=== PATIENT | male | born 1975 | race African-American/Black ===

== ENCOUNTER 2016-12-15 23:26 | Observation (INO) | payer BC ==
[~2016-12-15] VITALS: Ht 185.4 cm; Wt 125.9 kg
[~2016-12-15 23:26] MED LIST: NOHOMEMEDS; PRAVACHOL40 MG PO
[2016-12-16 00:19] LABS: MCH 27.8 PG (29.0-34.0); MCHC 31.7 G/DL (30.0-36.0); MCV 87.8 FL (86-99); MEAN PLAT.VOLUME 11.6 uM^3 (9.0-12.4); PLATELET COUNT 188 K/uL (156-360); RBC DIS.WIDTH-CV 13.3 % (11.8-14.6); RBC DIS.WIDTH-SD 42.9 % (39-53); RED BLOOD COUNT 5.47 M/uL (4.00-5.50); WHITE BLOOD COUNT 6.6 K/uL (4.1-10.2)
[2016-12-16 00:36] LABS: CHLORIDE 107 mEq/L (99-109); SODIUM 140 mEq/L (136-147)
[2016-12-16 00:38] LABS: GLUCOSE 102 mg/dL (70-99)
[2016-12-16 00:39] LABS: ANION GAP 13 MEQ/L (2-14)
[2016-12-16 00:42] LABS: GFR ESTIMATE (CALCULATED) > 59 mL/min/
[2016-12-16 00:43] LABS: TROP-I INTERPRETATION NEGATIVE; TROPONIN-I < 0.01 ng/mL (0.0-0.30); UREA NITROGEN (BUN) 15 mg/dL (9-23)
[2016-12-16 01:32] LABS: D-DIMER ELISA 0.24 mg/L FEU (< 0.57)
[2016-12-16 01:34] LABS: TOTAL BILIRUBIN 0.3 mg/dL (0.0-1.0)
[2016-12-16 01:35] LABS: ALKALINE PHOSPHATASE 91 IU/L (3-129)
[2016-12-16 01:38] LABS: DIRECT BILIRUBIN 0.1 mg/dL (0.0-0.3)
[2016-12-16 01:39] LABS: LIPASE 35 U/L (1.0-51.0)
[2016-12-16 02:57] LABS: TROP-I INTERPRETATION NEGATIVE; TROPONIN-I < 0.01 ng/mL (0.0-0.30)
[2016-12-16 09:04] LABS: HDL CHOLESTEROL 42 MG/DL (Desirable>=40); LDL CHOLESTEROL 141 mg/dL (Desirable<100); NON-HDL CHOLESTEROL 178 mg/dL (Desirable<160); TOTAL CHOLESTEROL 220 mg/dL (Desirable<200); TRIGLYCERIDES 187 MG/DL (Normal: <150)
[2016-12-16 12:54] LABS: TROP-I INTERPRETATION NEGATIVE; TROPONIN-I < 0.01 ng/mL (0.0-0.30)
[2016-12-16] MEDS ORDERED: ASPIRIN EC325 MG PO (13:15)
[2016-12-16 14:44] VITALS: BP 123/83
== END 2016-12-16 17:01 | disposition home or self-care (01) ==
LOC: EME 23:26 → 5WEST 12-16 04:57 → EDOF 12-16 04:57 → 5WEST 12-16 04:57 → EDOF 12-16 17:01
PROVIDERS: Emergency Medicine; Hospitalist
DX: R07.89 Other chest pain (principal); E78.00 Pure hypercholesterolemia, unspecified; E66.9 Obesity, unspecified
CPT/HCPCS: 71020; 80048; 80061; 80076; 83690; 84484; 85027; 85379; 93005; 99281; 99285; G0378; J2270

== ENCOUNTER 2018-02-18 04:42 | Emergency (ER) | payer OTHER ==
[~2018-02-18] VITALS: Ht 185.4 cm; Wt 122.8 kg
[~2018-02-18 04:42] MED LIST changes: +ASPIRIN EC325 MG PO
[2018-02-18 05:09] LABS: HEMOGLOBIN 15.2 G/DL (12.5-16.6); MCH 28.8 PG (29.0-34.0); MCV 87.3 FL (86-99); PLATELET COUNT 174 K/uL (156-360); RBC DIS.WIDTH-CV 13.2 % (11.8-14.6); RBC DIS.WIDTH-SD 42.2 % (39-53); RED BLOOD COUNT 5.27 M/uL (4.00-5.50)
[2018-02-18 05:17] LABS: CHLORIDE 104 mEq/L (99-109); POTASSIUM 3.9 mEq/L (3.7-5.4); SODIUM 140 mEq/L (136-147)
[2018-02-18 05:18] LABS: GLUCOSE 99 mg/dL (70-99)
[2018-02-18 05:22] LABS: CREATININE 1.2 mg/dL (0.6-1.3); GFR ESTIMATE (CALCULATED) > 59 mL/min/ (58.99-99999)
[2018-02-18 05:23] LABS: UREA NITROGEN (BUN) 14 mg/dL (9-23)
[2018-02-18 05:29] LABS: TROP-I INTERPRETATION NEGATIVE; TROPONIN-I < 0.01 ng/mL (0.0-0.30)
[2018-02-18 09:02] LABS: TROP-I INTERPRETATION NEGATIVE; TROPONIN-I < 0.01 ng/mL (0.0-0.30)
[2018-02-18 09:36] VITALS: BP 125/87
== END 2018-02-18 09:56 | disposition home or self-care (01) ==
LOC: EME 04:42
PROVIDERS: Emergency Medicine
DX: R07.89 Other chest pain (principal); R06.02 Shortness of breath; R20.2 Paresthesia of skin
CPT/HCPCS: 71046; 80048; 84484; 85027; 93005; 99281; 99285

== ENCOUNTER 2018-03-28 04:35 | Emergency (ER) | payer OTHER ==
[~2018-03-28] VITALS: Ht 185.4 cm; Wt 123.5 kg
[2018-03-28 07:04] LABS: HEMATOCRIT 43.9 % (38.0-50.0); HEMOGLOBIN 14.7 G/DL (12.5-16.6); MCH 29.2 PG (29.0-34.0); MCHC 33.5 G/DL (30.0-36.0); MCV 87.1 FL (86-99); PLATELET COUNT 151 K/uL (156-360); RBC DIS.WIDTH-CV 13.1 % (11.8-14.6); RBC DIS.WIDTH-SD 41.4 % (39-53); RED BLOOD COUNT 5.04 M/uL (4.00-5.50); WHITE BLOOD COUNT 6.6 K/uL (4.1-10.2)
[2018-03-28] MEDS ORDERED: MEDROL DOSEPAK4 MG PO (07:19)
[2018-03-28 07:25] VITALS: BP 120/74
[2018-03-28 07:26] LABS: CHLORIDE 105 MEQ/L (99-109); GFR ESTIMATE (CALCULATED) > 59 mL/min/ (58.99-99999); GLUCOSE 108 mg/dL (70-99); POTASSIUM 4.2 MEQ/L (3.7-5.4); SODIUM 137 MEQ/L (136-147); UREA NITROGEN (BUN) 13 mg/dL (9-23)
[2018-03-28 07:34] LABS: TROP-I INTERPRETATION NEGATIVE; TROPONIN-I < 0.01 ng/mL (0.0-0.30)
== END 2018-03-28 07:31 | disposition home or self-care (01) ==
LOC: EME 04:35
PROVIDERS: Emergency Medicine
DX: R20.2 Paresthesia of skin (principal); R06.00 Dyspnea, unspecified; E78.5 Hyperlipidemia, unspecified
CPT/HCPCS: 71046; 80048; 84484; 85027; 93005; 99281; 99284; J1100